=== PATIENT | male | born 1965 | race Caucasian/White ===

== ENCOUNTER 2016-10-29 20:52 | Emergency (ER) | payer OTHER ==
[~2016-10-29 20:52] MED LIST: ALTACE5 M4 PO; CINNAMON BARK MC; METFORMIN HCL1000 M3 PO; TUMERIC; XARELTO15 M1 PO; XARELTO20 M1 PO
[2016-10-29 21:48] LABS: BASO % 0.4 % (0-2); EOS % 3.6 % (0-7); EOSINOPHIL ABSOLUTE COUNT 0.3 tho/cmm (0.0-0.7); HCT-HEMATOCRIT 40.8 % (36.0-53.5); HGB-HEMOGLOBIN 13.7 gm/dl (13.5-17.0); IMMATURE GRANULOCYTES ABSOLUTE 0.01 tho/cmm (0-0.03); IMMATURE GRANULOCYTES PERCENT 0.1 % (0-0.3); LYMPH ABSOLUTE COUNT 2.6 tho/cmm (0.8-4.5); MCH (MEAN CORPUSCULAR HGB) 28.4 pg (28.0-32.0); MCHC MEAN CORPUSCULAR HGB CONC 33.6 % (32.0-36.0); MCV (MEAN CELL VOLUME) 84.5 fl (82.0-96.0); MEAN PLATELET VOLUME 9.4 cmc (9.4-12.4); MONOCYTE ABSOLUTE COUNT 0.6 tho/cmm (0.0-1.2); NEUTROPHIL ABSOLUTE COUNT 3.7 tho/cmm (1.6-8.0); NEUTROPHIL-AUTOMATED 3.7 tho/cmm (1.6-8.0); NEUTROPHILS % 51.9 % (40-80); PLATELET COUNT 188 tho/cmm (150-450); RED BLOOD COUNT 4.83 mil/cmm (4.40-5.70); WHITE BLOOD COUNT 7.2 tho/cmm (4.0-10.0)
[2016-10-29 22:01] LABS: BLOOD UREA NITROGEN 26 mg/dl (6-24); CALCIUM 8.7 mg/dl (8.5-10.5); CARBON DIOXIDE-VENOUS 23 mmol/L (22-32); CHLORIDE 105 mmol/l (96-110); CREATININE 1.37 mg/dl (0.60-1.30); GLUCOSE 160 mg/dL (70-110); SODIUM 140 mmol/L (135-145); eGFR VALUE FOR BLACK 68 mL/Min
[2016-10-29 22:14] LABS: ANION GAP 16 mmol/L (0-20); POTASSIUM 3.9 mmol/L (3.7-5.1)
== END 2016-10-29 23:18 ==
LOC: EDMED 20:52
PROVIDERS: Emergency Medicine
DX: R00.2 Palpitations (principal); R00.0 Tachycardia, unspecified; E11.9 Type 2 diabetes mellitus without complications; I10 Essential (primary) hypertension; Z87.891 Personal history of nicotine dependence
CPT/HCPCS: J7030